=== PATIENT | female | born 1960 | race Caucasian/White ===

== ENCOUNTER 2017-06-25 06:33 | Inpatient (IN) | payer OTHER ==
[~2017-06-25] VITALS: Ht 165.1 cm; Wt 112.7 kg
[~2017-06-25 06:33] MED LIST: FLUO40CA PO; LEVO175T23 PO; MOBI15TA PO; OXYC1TAB63 PO; PROT40TA PO; XARE10TA PO
[2017-06-25] MEDS ORDERED: CHLORHEXIDINE GLUCONATE 2 % 1 PACK (2 CLOTHS) TOPICAL PRN (07:30)
[2017-06-25] MEDS ORDERED: POVIDONE IODINE 7.5% SCRUB 118 ML BOTTLE TOPICAL SCH (07:30)
[2017-06-25] MEDS ORDERED: LACTATED RINGER'S 1000 ML IV PRN (07:30)
[2017-06-25] MEDS ORDERED: ceFAZolin 2 GM PREMIX 50 ML IV SCH (07:30)
[2017-06-25] MEDS ORDERED: METOPROLOL TARTRATE 25 MG TAB PO PRN (07:30)
[2017-06-25] MEDS ORDERED: POVIDONE IODINE 5% (ANTISEPSIS KIT) 4 APPLICATIONS EACH NARE PRN (07:30)
[2017-06-25] MEDS ORDERED: SODIUM CHLORID 0.9% 500 ML IV PRN (07:30)
[2017-06-25] MEDS ORDERED: VANCOMYCIN 1000 MG/NS 250 ML (for <70 kg) IV SCH ×2 (07:30)
[2017-06-25] MEDS ORDERED: ROPIVACAINE 0.5% PF INJ 30 ML VIAL ONE (07:54)
[2017-06-25] MEDS ORDERED: DEXAMETHASONE SOD PHOS PF 10 MG/ML VIAL ONE (07:54)
[2017-06-25] MEDS ORDERED: PROPOFOL 500 MG/50 ML INJ 50 ML ONE (08:02)
[2017-06-25] MEDS ORDERED: GENTAMICIN SULFATE 80 MG/2 ML VIAL ONE (08:31)
[2017-06-25] MEDS ORDERED: TRANEXAMIC ACID IV SCH (09:00)
[2017-06-25] MEDS ORDERED: SODIUM CHLORIDE 0.9% IV SCH (09:00)
[2017-06-25] MEDS ORDERED: EXPAREL PERI-ARTICULAR INJECTION (TOTAL VOL. 60 ML) P-ARTICULR SCH ×2 (09:00)
[2017-06-25] MEDS ORDERED: ceFAZolin INJ 1,000 MG VIAL ONE (09:11)
[2017-06-25] MEDS ORDERED: PROPOFOL 500 MG/50 ML INJ 100 ML ONE (10:39)
--- NOTE | 2017-06-25 11:28 | PD.OP ---
cc: Jamaal Travis MD Operative Report Date of Surgery: Jun 25, 2017 Preoperative Diagnosis: Osteoarthritis left knee Postoperative Diagnosis: Same Procedure: Left total knee replacement arthroplasty Anesthesia: Spinal with regional block for pain control Surgeon: Jamaal Travis Collator Hand(s): SURI Faith Operation and Findings: EBL: 100 cc INDICATION: This patient presents with long-standing arthritis of the knee. Attachment record documents conservative measures. The patient now presents for surgical treatment. NOTE: Radha Faith PA-C was present for the entire surgical procedure as my rn first assistant. In my medical opinion her skill and care was necessary for proper management of this patient. TOURNIQUET TIME: 62 minutes COMPANY: [employer] FEMUR: Size 4, posterior stabilized TIBIA: Size 4, fixed bearing PATELLA: 38 mm POLYETHYLENE INSERT: Size 4, 10 mm PROCEDURE: This patient was brought the operating room and anesthetized in the supine position. The patient was positioned supine on the table. The tourniquet was placed about the thigh, and the leg was scrubbed with alcohol followed by Hibiclens followed by ChloraPrep and draped sterilely. A timeout was done, and antibiotics were given. After exsanguination the tourniquet was inflated to 250 mmHg. An anterior incision was made and a median parapatellar arthrotomy was performed. The patella was released laterally and subluxed allowing freehand cut of the patella which was then sized. A metal cap was placed over the exposed patellar surface for protection. A private pilot hole was placed in the distal femur allowing a 5 valgus cut removing 9 mm from the distal femur. Anterior posterior and chamfer cuts were made. The posterior stabilize osteotomy was made. The attention was directed to the tibia. Retractors were positioned. The external alignment guide was used allowing the lateral tibia to be used as referencing guide and cut utilizing an oscillating saw taking care to avoid any injury to the surrounding soft tissues. This was sized properly. Trial reduction showed that the insert fit nicely. The patient had range of motion extension 0 flexion 120. A medial release was not necessary. A posterior medial corner release of the semimembranosus was necessary for a partial release The bony surfaces prepared. On the back table 2 packets of methylmethacrylate were mixed. The components were cemented. Excess cement was removed. The tourniquet let down and hemostasis was controlled. The final plastic insert was inserted. Range of motion was the same as previously noted. A drain was brought through a separate stab incision. The arthrotomy was repaired with interrupted #1 Vicryl suture, subcutaneous tissue 2-0 Vicryl suture and skin with metallic kaye A sterile dressing was applied. Sponge counts, needle counts and instrument counts were all correct. The patient tolerated procedure well and was taken to recovery in satisfactory condition. FINDINGS: There was severe osteoarthritis of all 3 compartments but worst in the medial compartment. There was a preoperative varus deformity. Final solution was excellent. Range of motion was excellent. There was no complication Jamaal Travis MD Jun 25, 2017 11:28
[2017-06-25] MEDS ORDERED: Post-op Orders (for Pharmacy) MISC XX ONE (11:30)
[2017-06-25] MEDS ORDERED: MISCELLANEOUS NURSING INFORMATION XX PRN (11:30)
[2017-06-25] MEDS ORDERED: oxyCODONE/ACETAMINOPHEN 5 MG/325 MG TAB PO PRN (11:30)
[2017-06-25] MEDS ORDERED: MISCELLANEOUS PHARMACY INFORMATION XX ONE (11:30)
[2017-06-25] MEDS ORDERED: XARE10TA PO (11:30)
[2017-06-25] MEDS ORDERED: SODIUM CHLORIDE 0.9% FLUSH 5 ML FLUSH IVF PRN (11:30)
[2017-06-25] MEDS ORDERED: TEMAZEPAM 15 MG CAP PO PRN (11:30)
[2017-06-25] MEDS ORDERED: NALOXONE HCL 0.4 MG/ML AMP IV PUSH PRN (11:30)
[2017-06-25] MEDS ORDERED: MORPHINE SULFATE 8 MG/ML INJ IM PRN (11:30)
[2017-06-25] MEDS ORDERED: DO NOT ADM ANY ANTICOAGULANT DRUGS PRN (11:49)
--- NOTE | 2017-06-25 12:44 | RADRPT ---
EXAM DATE/TIME: 06/25/2017 12:28 [facility] COMPARISON: No previous studies available for comparison. INDICATIONS : Post op left total knee. MEDICAL HISTORY : None. SURGICAL HISTORY : None. ENCOUNTER: Initial ACUITY: 1 day PAIN SCORE: Non-responsive. LOCATION: Left knee. FINDINGS: Two view examination of the left knee demonstrates the patient had a totally arthroplasty Position. There no complications.. CONCLUSION: Unremarkable limited examination of the left knee status post total knee arthroplasty. Robert Adams MD on June 25, 2017 at 12:41 Board Certified Radiologist. This report was verified electronically.
[2017-06-25] MEDS: LACTATED RINGER'S 1000 ML INJ 1,000 ML IV SCH (12:45)
[2017-06-25] MEDS: MORPHINE SULFATE 30 MG/30 ML PCA IV SCH ×2 (13:17→17:43)
[2017-06-25 13:46] VITALS: BP 139/70; PULSE 68; RESP 18; TEMP 96.2; O2SAT 96
[2017-06-25] MEDS: PCA - TOTAL MG MORPHINE DELIVERED PER SHIFT SCH ×2 (14:00→22:00)
[2017-06-25 16:00] VITALS: BP 147/88; PULSE 114; RESP 15; TEMP 96.6; O2SAT 99
[2017-06-25] MEDS: diphenhydrAMINE HCL 25 MG CAP PO PRN ×2 (16:27→23:08)
[2017-06-25 19:00] VITALS: BP 136/67; PULSE 81; RESP 18; TEMP 96.8; O2SAT 96
[2017-06-25] MEDS ORDERED: CPMMACHINE (19:46)
--- NOTE | 2017-06-25 19:46 | HHI.DCPOC ---
Discharge Care Plan Diagnosis: (1) Osteoarthritis of left knee Your Health Problems Are: Difficulty with ADL Incision/Drains Inflammation Goals to Promote Your Health * To prevent worsening of your condition and complications * To maintain your health at the optimal level Directions to Meet Your Goals Take your medications as prescribed Follow your dietary instruction Follow activity as directed Keep your appointments as scheduled Take your immunizations and boosters as scheduled If your symptoms worsen call your PCP, if no PCP go to Urgent Care Center or Emergency Room Smoking is Dangerous to Your Health. Avoid second hand smoke Call the 24-hour hour crisis hotline for domestic abuse at Radha Faith Jun 25, 2017 19:46
--- NOTE | 2017-06-25 19:48 | HHI.FF ---
Face to Face Verification Diagnosis: (1) Osteoarthritis of left knee Physical Therapy Gait training, Safety evaluation, Transfer training, bed to chair Knee: Total knee, Protocol: Left, Full weight bearing Canvas Knee Splint: When in bed & 2 pillows btw thighs Left LE Weight Bearing: WB as tolerated Additional Instructions PT 4 days/wk for 2 weeks. WBAT LLE. Left total knee precautions. Walker as needed for gait assistance. CPM bid as tolerated, 0-60 with goal of 100 flexion. Nursing RN Days per Week: 2 x Week(s): 1 Dressing Changes: Do not change dressing Additional Instructions Vitals assessment. Dressing assessment - do not change unless saturated or erythema I have seen patient Cristiana Taveras on 06/25/17. My clinical findings support the need for the requested home health care services because: Limited ability to care for self High risk of falls I certify that my clinical findings support that this patient is homebound because: Post-op weakness Unsteady gait/balance Radha Faith Jun 25, 2017 19:48
--- NOTE | 2017-06-25 19:53 | HHI.DS ---
Discharge Summary Admission Date Jun 25, 2017 at 06:33 Discharge Date: Jun 26, 2017 Admitting Diagnosis see below Diagnosis: (1) Osteoarthritis of left knee Diagnosis: Principal ICD Codes: M17.12 - Unilateral primary osteoarthritis, left knee Procedures Left total knee arthroplasty, posterior stabilized Brief History This is a 56 year old female patient with a 6 plus year history of bilateral knee pain. She was diagnosed with bilateral knee osteoarthritis several years ago. 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 She had multiple steroid and synvisc injections in both knees in addition to taking non-steroidal medications. She eventually pursued right total knee arthroplasty in 2013 which was very successful. She continued conservative measures including further injection of her left knee until her function began to decline. Imaging studies were repeated showing advanced osteoarthritis with severe thinning of the articular cartilage. It was recommended she consider left total knee arthroplasty. She agreed and now presents for the above. Hospital Course pod#1 HHC... ASA 325 2 tabs. Percocoet 5 Pt Condition on Discharge: Stable Discharge Disposition: Disch w/ Home Health Serv Discharge Instructions Diet Instructions: As Tolerated, No Restrictions, High Fiber Diet Activities You Can Perform: Weight Bearing as Kaye Activities to Avoid: Strenuous Activity Additional Activity Instruc.: Left TKA precautions New Medications: CPM-Continuous Passive Motion Machine (CPM-Continuous Passive Motion Machine) 1 Ea Device EA .ROUTE DIRECTED, #1 0 Refills Rivaroxaban (Xarelto) 10 Mg Tab 10 MG PO Q24H for Prevent Blood Clot, #15 TAB Continued Medications: Fluoxetine (Fluoxetine) 40 Mg Cap 40 CAP PO DAILY, #30 CAP 0 Refills Levothyroxine (Levoxyl) 175 Mcg Tab 175 MCG PO DAILY for Thyroid, #30 TAB 0 Refills Pantoprazole (Protonix) 40 Mg Tab 40 MG PO DAILY for Reflux, #30 TAB 0 Refills Radha Faith Jun 25, 2017 19:53
[2017-06-25] MEDS: SODIUM CHLORIDE 0.9% FLUSH 5 ML FLUSH IVF SCH (20:19)
[2017-06-25] MEDS: MAGNESIUM HYDROXIDE SUSP 30 ML CUP PO SCH (20:19)
[2017-06-25] MEDS ORDERED: SENNOSIDES 8.6 MG TAB PO SCH (21:00)
[2017-06-26 00:50] VITALS: BP 102/69; PULSE 79; RESP 17; TEMP 97; O2SAT 95
[2017-06-26] MEDS: MORPHINE SULFATE 30 MG/30 ML PCA IV SCH (01:09)
[2017-06-26] MEDS: LACTATED RINGER'S 1000 ML INJ 1,000 ML IV SCH (02:45)
[2017-06-26 04:45] VITALS: BP 123/71; PULSE 75; RESP 18; TEMP 96.8; O2SAT 96
[2017-06-26 05:34] LABS: REVIEW FLAG FINAL
[2017-06-26] MEDS: oxyCODONE/ACETAMINOPHEN 5 MG/325 MG TAB PO PRN ×3 (05:38→13:07)
[2017-06-26] MEDS ORDERED: LEVOTHYROXINE SODIUM 75 MCG TAB PO SCH (06:00)
[2017-06-26] MEDS ORDERED: LEVOTHYROXINE SODIUM 100 MCG TAB PO SCH (06:00)
[2017-06-26] MEDS: PCA - TOTAL MG MORPHINE DELIVERED PER SHIFT SCH (06:00)
[2017-06-26 07:35] VITALS: BP 113/69; PULSE 73; RESP 18; TEMP 96.3; O2SAT 94
[2017-06-26 07:44] VITALS: O2SAT 95
[2017-06-26] MEDS: diphenhydrAMINE HCL 25 MG CAP PO PRN (07:55)
[2017-06-26] MEDS: MAGNESIUM HYDROXIDE SUSP 30 ML CUP PO SCH (09:00)
[2017-06-26] MEDS ORDERED: PANTOPRAZOLE SOD 40 MG DELAYED RELEASE TAB PO SCH (09:00)
[2017-06-26] MEDS ORDERED: FLUoxetine HCL 20 MG CAP PO SCH (09:00)
[2017-06-26] MEDS: SODIUM CHLORIDE 0.9% FLUSH 5 ML FLUSH IVF SCH (09:00)
[2017-06-26] MEDS ORDERED: RIVAROXABAN 10 MG TAB PO SCH (11:00)
[2017-06-26 11:47] VITALS: BP 151/69; PULSE 78; RESP 18; TEMP 97.2; O2SAT 95
--- NOTE | 2017-06-26 12:35 | PD.ORT.PN ---
Subjective Subjective Remarks Doing well. Very good pain control. Sitting in a chair at bedside. Objective Vitals Vital Signs Date Time Temp Pulse Resp B/P (MAP) Pulse Ox O2 Delivery O2 Flow Rate FiO2 06/26/17 11:47 97.2 78 18 151/69 (96) 95 06/26/17 07:44 95 21 06/26/17 07:35 96.3 73 18 113/69 (84) 94 06/26/17 06:00 18 06/26/17 04:45 96.8 75 18 123/71 (88) 96 06/26/17 01:09 18 06/26/17 00:50 97.0 79 17 102/69 (80) 95 06/25/17 22:00 18 06/25/17 20:30 Room Air 06/25/17 19:00 96.8 81 18 136/67 (90) 96 06/25/17 17:43 6 06/25/17 16:00 96.6 114 15 147/88 (107) 99 06/25/17 13:50 Room Air 06/25/17 13:46 96.2 68 18 139/70 (93) 96 06/25/17 13:17 14 06/25/17 12:50 97.8 62 12 97 Nasal Cannula 2 06/25/17 12:45 58 12 140/84 (102) 96 Nasal Cannula 2 I/O 06/25/17 06/25/17 06/25/17 06/26/17 06/26/17 06/26/17 07:00 15:00 23:00 07:00 15:00 23:00 Intake Total 1900 ml 480 ml 1550 ml Output Total 1900 ml 1800 ml 750 ml Balance 0 ml -1320 ml 800 ml Intake Oral 500 ml 480 ml 480 ml IV Total 100 ml 1070 ml Other 1300 ml Output Urine Total 1800 ml 1800 ml 750 ml Estimated Blood Loss 100 ml # Bowel Movements 0 0 0 Result Diagram: 06/26/17 0439 Procedures Left total knee arthroplasty, posterior stabilized Objective Remarks Incision dry. Mild swelling. No calf tenderness. Negative Homans. Looks fine. Hemoglobin 11.8 Assessment & Plan Ortho Post Op Day #: 1 Problem List: (1) Osteoarthritis of left knee ICD Codes: M17.12 - Unilateral primary osteoarthritis, left knee Status: Chronic Qualifiers: Qualified Codes: M17.12 - Unilateral primary osteoarthritis, left knee Assessment and Plan Osteoarthritis left knee. Left TKA: POD #1. PLAN: Discontinue Xarelto. One enteric-coated aspirin 325 mg twice daily. Weightbearing as tolerated. No dressing change. Discharge to home. Home healthcare. Home physical therapy. Return in 2 weeks Jamaal Travis MD Jun 26, 2017 12:35
[2017-06-26] MEDS ORDERED: ASPI325T33 PO (12:38)
== END 2017-06-26 14:40 | disposition home health service (06) | DRG 470 ==
LOC: HSDI 06:33 → N06A 13:47
PROVIDERS: ADMIT Orthopaedic Surgery Orthopaedic Surgery of the Spine; ATTEND Orthopaedic Surgery Orthopaedic Surgery of the Spine
PROC: 3E0T3BZ Introduction of Anesthetic Agent into Peripheral Nerves and Plexi, Percutaneous Approach (ICD-10-PCS; 2017-06-25)
PROC: 0SRD0J9 Replacement of Left Knee Joint with Synthetic Substitute, Cemented, Open Approach (ICD-10-PCS; principal; 2017-06-25 08:54)
DX: M17.12 Unilateral primary osteoarthritis, left knee (principal); Z96.651 Presence of right artificial knee joint; Z79.82 Long term (current) use of aspirin
CPT/HCPCS: 73560; 85014; 85018; 86850; 86900; 86901; 86920; 94150; C1776; C9290; J0690; J1100; J1580; J2270; J2795; J3370; J7050; J7120; L1830

== ENCOUNTER 2018-07-16 06:16 | Observation (INO) ==
[2018-07-16] MEDS ORDERED: Metoprolol Tartrate 25 MG Tablet PO ONE (06:36)
[2018-07-16] MEDS ORDERED: Chlorhexidine Gluconate 2% 1 Pack (2 Cloths) TOPICAL ONE (06:36)
[2018-07-16] MEDS ORDERED: ceFAZolin 2 GM IV; once IV.SIG ONE (06:45)
[2018-07-16] MEDS ORDERED: Sodium Chlor 0.9% Inj 500 ML IV.SIG SCH (07:00)
[2018-07-16] MEDS ORDERED: Estrogens Congugated Vag Cream w/app 30 GM Tube VAGINAL ONE (07:22)
[2018-07-16] MEDS ORDERED: HYDROmorphone PF Inj 1 MG/ML Ampul IV.PUSH PRN (12:29)
[2018-07-16] MEDS ORDERED: Zolpidem Tartrate 5 MG Tablet PO PRN (12:29)
[2018-07-16] MEDS ORDERED: *morphine SULFATE 4 MG/ML PERIprocedure ONLY ONE ×2 (12:40→12:46)
[2018-07-16] MEDS ORDERED: fentaNYL Citrate Inj 100 MCG/2 ML Ampul ONE (12:41)
[2018-07-16] MEDS ORDERED: KCL 20 mEq/D5W/NaCl 0.45% Inj 1,000 ML ONE (12:47)
--- NOTE | 2018-07-16 12:47 | P.OP ---
- Preoperative Diagnosis (1) Post-menopausal bleeding (2) Thickened endometrium (3) Atypical glandular cells on cervical Pap smear (4) History of endometrial ablation - Postoperative Diagnosis (1) Atypical glandular cells on cervical Pap smear (2) History of endometrial ablation (3) Post-menopausal bleeding (4) Thickened endometrium Date of procedure: 07/16/18 Procedure: Laparoscopic-assisted vaginal hysterectomy, bilateral salpingo-oophorectomy, cystotomy and repair. Anesthesia: [facility] Surgeon: Osvaldo Garcia MD Fruit Loader: Bhaskar Joiner (For repair of the bladder) Estimated blood loss (mL): 100 Operation and Findings: Complications cystotomy. Counts were correct Findings examination under anesthesia the cervix was clean without lesions the uterus is normal size shape and consistency and freely mobile there was no adnexal masses. Laparoscopic exam revealed normal ovaries fallopian tubes had been tied previously the uterus appeared normal. Opening cytology was obtained. There was a 3 cm cystotomy at the dome of the bladder Procedure in detail Patient was taken to the operating theater and identified by name band and verbally and a Joseph catheter inserted. She was prepped and draped in the usual sterile fashion for a laparoscopic assisted vaginal hysterectomy. An examination under anesthesia was carried out after. And the weighted speculum was placed into the vagina the anterior lip of the cervix was grasped with a single-tooth tenaculum and a Hulka clamp was placed. Attention was turned to the umbilical area a small subumbilical incision was made with a 5 mm trocar the abdomen was entered under direct vision without difficulty. A pneumoperitoneum was created with 3 L of CO2 the entire abdomen was visualized with the above finding the upper abdomen looks normal the GI tract looks normal the uterus tubes and ovaries looked normal we obtained washings from the posterior cul-de-sac because of the possible atypical glandular cells on Pap. We started at the round ligament and took those down bilaterally with the harmonic scalpel next the infundibulopelvic ligaments were visualized and taken down with the harmonic scalpel bilaterally. The broad ligament was taken down to the level of the internal cervical loss and these uterine vessels were skeletonized at this time. At this point we started to push the bladder back out of harm's way and created a inadvertent cystotomy about 3 cm in length. We called Dr. Bhaskar gastelum in for help and repair this was repaired with a 2-0 Vicryl and running fashion. The uterine vessels were then taken down bilaterally and the cardinal ligament was taken off of the cervix with a harmonic scalpel staying very close to the cervix. At this point to reach the apex of the vagina we removed the air and went for vaginal access. The weighted speculum was placed into the vagina the anterior lip of the cervix was then grasped with a single-tooth tenaculum and the Hulka clamp was removed a circumferential incision was made around the cervix and the specimen removed intact without difficulty the vaginal cuff was then repaired with 0 Vicryl and a interrupted fashion and a large amount of plain water was used to irrigate the vagina. Hemostasis was excellent and we went back up and we created a pneumoperitoneum all the pedicles look dry the bladder repair looked perfect and irrigated again and the laparoscope was removed under direct vision we did put a 10 mm port into repair the bladder inferior lateral to the umbilicus on the right and a 1 above that 5 mm to repair the bladder the 10mm trocar was then removed and the fascia was repaired repaired with 2-0 Vicryl in interrupted fashion with excellent result the remainder being trochars were removed and the air was released and those incisions were all repaired with a 4-0 Monocryl in a subcuticular manner at this point she went to the recovery room in satisfactory condition.
[2018-07-16] MEDS ORDERED: *Meperidine Inj 25 MG/ML Vial PERIprocedural Use ONLY ONE (12:55)
[2018-07-16] MEDS ORDERED: *Promethazine Inj 25 MG/ML Vial PERIprocedural use ONLY ONE (13:12)
[2018-07-16] MEDS: KCL 20 mEq/D5W/NaCl 0.45% Inj 1,000 ML IV.CONT SCH ×2 (13:31→21:00)
[2018-07-16] MEDS: Docusate Sodium 100 MG Capsule PO SCH (19:37)
[2018-07-17] MEDS: Ibuprofen 600 MG Tablet PO PRN ×2 (03:20→13:17)
[2018-07-17] MEDS: KCL 20 mEq/D5W/NaCl 0.45% Inj 1,000 ML IV.CONT SCH ×2 (05:31→13:15)
[2018-07-17 05:51] LABS: Baso % (Auto) 0.1 % (0.0-2.0); Eos % (Auto) 0.1 % (0.0-4.0); Hematocrit 34.9 % (35.0-46.0); Hemoglobin 11.4 gm/dL (11.6-15.3); Lymph # (Auto) 2.2 th/mm3 (1.0-4.8); Lymph % (Auto) 14.1 % (9.0-44.0); Mean Corpuscular HGB Conc 32.8 % (32.0-36.0); Mean Corpuscular Hemoglobin 27.9 pg (27.0-34.0); Mean Corpuscular Volume 85.2 fL (80.0-100.0); Mean Platelet Volume 9.2 fL (7.0-11.0); Mono # (Auto) 0.8 th/mm3 (0.0-0.9); Mono % (Auto) 5.4 % (0.0-8.0); Neut # (Auto) 12.4 th/mm3 (1.8-7.7); Neut % (Auto) 80.3 % (16.0-70.0); Platelet Count 291 th/mm3 (150-450); Red Blood Count 4.09 mil/mm3 (4.00-5.30); White Blood Count 15.5 th/mm3 (4.0-11.0)
[2018-07-17 06:11] LABS: Anion Gap 8 meq/L (5-15); Blood Urea Nitrogen 6 mg/dL (7-18); Calcium 7.5 mg/dL (8.5-10.1); Carbon Dioxide 24.4 meq/L (21.0-32.0); Chloride 102 meq/L (98-107); Glomerular Filtration Rate Greater Than 89 mL/min (>89); Glucose,Random 128 mg/dL (74-106); Sodium 134 meq/L (136-145)
[2018-07-17] MEDS: Docusate Sodium 100 MG Capsule PO SCH (08:02)
[2018-07-17] MEDS ORDERED: FLUoxetine 20 MG Capsule PO SCH (09:00)
--- NOTE | 2018-07-17 09:04 | P.PNOB ---
Assessment and Plan - Postoperative Procedures Operation Date: 07/16/18 08:00 Actual Procedures Side Surgeon p LAPAROSCOPIC ASSISTED VAGINAL HYSTERECTOMY, BILATERAL SALPINGO-OOPHERECTOMY, CYSTOTOMY, REPAIR OF CYSTOTOMY Osvaldo Garcia MD Postoperative day: 1 Postoperative status: doing well Postoperative plan: routine post-op care - Time Spent With Patient Total time spent is greater than 50% in coordination of care (as documented) at patient's floor/unit and/or counseling patient: less than 15 minutes Subjective Subjective: pain is well controlled, patient is tolerating oral intake Physical Exam Vital signs: Temp Pulse Resp BP Pulse Ox 97.9 F 87 18 121/62 94 L 07/17/18 03:56 07/17/18 03:56 07/17/18 03:56 07/17/18 03:56 07/17/18 03:56 - Constitutional no acute distress - Routine Respiratory Exam Present: CTA bilaterally - Routine Cardiovascular Exam Present: RRR, S1, S2 - Routine Abdominal Exam Present: soft, normoactive bowel sounds Comments: bandaids cdi - Detailed Neurological Exam: Coma Scale Eye Opening: Spontaneous Verbal Response: Oriented - Urinary Catheter Management Indwelling Urethral Catheter Cath placed during this visit: yes Urethral indwelling: Yes Reason for Continuing: Other continuation reason (surgical complication) Insertion date: 07/16/18 (clear yellow urine to moura bag ) Insertion time: 09:34 Results - Labs CBC & Chem 7: 07/17/18 04:48 07/17/18 04:48 Labs: Laboratory Results - last 24 hr 07/17/18 07/17/18 04:48 04:48 WBC 15.5 H RBC 4.09 Hgb 11.4 L Hct 34.9 L MCV 85.2 MCH 27.9 MCHC 32.8 RDW 15.0 Plt Count 291 MPV 9.2 Neut % (Auto) 80.3 H Lymph % (Auto) 14.1 [place] % (Auto) 5.4 Eos % (Auto) 0.1 Baso % (Auto) 0.1 Neut # (Auto) 12.4 H Lymph # (Auto) 2.2 [place] # (Auto) 0.8 Eos # (Auto) 0.0 Baso # (Auto) 0.0 WBC Differential . Differential Comment Auto diff final Sodium 134 L Potassium 4.0 Chloride 102 Carbon Dioxide 24.4 Anion Gap 8 BUN 6 L Creatinine 0.65 Estimated GFR Greater than 89 Random Glucose 128 H Calcium 7.5 L
[2018-07-17 12:26] VITALS: O2SAT 96
[2018-07-17 16:37] VITALS: BP 130/64; PULSE 78; RESP 20; TEMP 97.7
== END 2018-07-17 17:25 | disposition home or self-care (01) ==
LOC: HSDC 06:16 → HSDI 06:16 → H1EA 13:49
PROVIDERS: ADMIT Obstetrics & Gynecology; ATTEND Obstetrics & Gynecology